=== PATIENT | male | born 1950 | race Caucasian/White ===

== ENCOUNTER → 2017-05-19 | Outpatient (CLI) | payer MEDICARE, BC ==
--- NOTE | ~2017-05-19 | MR2 ---
[facility] A Service of [facility] RADIOLOGY TEXT RESULTS PATIENT: VIELKA KHAN LOCATION: [facility] : [birth year] UNIT #: [id number] AGE: [address]: Sobia Pickard MD SEX: M ORDER DR: [id number] [address] [id number] [id number] O MR#: [id number] Acc #: [id number] NAME: VIELKA KHAN : 1950 SEX: M STUDY DATE/TIME: 05/19/2017 12:16 UNIT: [facility] ROOM: STUDY DESCRIPTION: MR Abdomen WWo Cont Attending Physician: Sobia Pickard M.D. Referring Physician: Sobia Pickard M.D. Ordering Physician: Sobia Pickard M.D. Primary Care Physician: Sobia Pickard M.D. MRI CENTER REPORT This report is preliminary unless electronic signature is present. EXAM MRI abdomen with and without contrast. Adrenal protocol, 05/19/2017 INDICATIONS 66-year-old male with history of melanoma and hypertension. Followup to CT 05/03/2017 demonstrating a right adrenal nodule and thickening of the left adrenal gland. History of appendectomy. Renal cyst.; multiplanar, multisequence MRI abdomen was performed before after the uneventful intravenous menstruation 20 mL MultiHance contrast material. COMPARISON None. Correlation is made with CT abdomen and pelvis 05/03/2017 FINDINGS Included lung bases are clear. Aorta demonstrates no aneurysm or dissection. The pancreas is unremarkable. No evidence of cholelithiasis or pancreas divisum. Incidental mild adenomyomatosis of the gallbladder fundus. No significant fatty infiltration of the liver or depositional disease within the liver. There is no distinct organomegaly. MRI confirms the presence of a 12 mm nodule in the right adrenal gland. It demonstrates a drop of signal on opposed phase T1 images most characteristic of a benign adenoma. Similarly, there is signal drop within the left adrenal gland which is asymmetrically prominent compared to the right most characteristic of adenomatous change or hyperplasia. The spleen is unremarkable. Pancreas demonstrates no enhancing mass or abnormal enhancement. No hydronephrosis of either kidney. There is an incidental cyst in the right kidney measuring 18 mm. The kidneys are otherwise unremarkable. The included liver is unremarkable. No STS. [facility] A Service of [facility] RADIOLOGY TEXT RESULTS PATIENT: VIELKA KHAN LOCATION: [facility] : 48 UNIT #: [id number] AGE: [address]: Sobia Pickard MD SEX: M ORDER DR: adenopathy. Included bowel unremarkable. Marrow signal unremarkable. IMPRESSION 1. The right adrenal nodule has signal characteristics most characteristic of a benign adenoma. It requires no additional followup. 2. Benign adrenal gland hyperplasia on the left. 3. Incidental benign right renal cyst measures 18 mm. 4. Otherwise negative. Dictated by... Smith Fong M.D. THIS IS AN ELECTRONICALLY VERIFIED REPORT Smith Fong M.D. at 05/24/2017 6:14 AM Henri TD: 05/23/2017 02:47 JOB #: [id number] MRI CENTER REPORT Page 1 of 1
== END | disposition home or self-care (01) ==
LOC: SMRI 11:39
DX: N28.1 Cyst of kidney, acquired (principal); E27.8 Other specified disorders of adrenal gland; I65.29 Occlusion and stenosis of unspecified carotid artery
CPT/HCPCS: 74183; A9581